=== PATIENT | female | born 2000 | race Caucasian/White ===

== ENCOUNTER 2020-06-03 10:23 | Emergency (ER) | payer MEDICAID, OTHER ==
--- NOTE | 2020-06-03 11:00 | ER Document Report ---
ED Medical Screen (RME) - General Chief Complaint: Vaginal Bleeding Stated Complaint: VAG BLEED 6 WEEKS PREG Time Seen by Provider: 06/03/20 10:54 Primary Care Provider: SYBIL VALDIVIA MD [Primary Care Provider] - Follow up as needed Mode of Arrival: Ambulatory Information source: Patient Notes: HPI; 19-year-old female who states she is approximately 6 weeks presents to the emergency room complaining of vaginal bleeding for the past 3 days. States initially she was just spotting and only notes of blood when she wiped increased bleeding this morning. No previous OB care. Did have a confirmed at her doctor's office on Sunday. She is a 1 denies any pain, no nausea, no vomiting. PE: Alert and oriented x3. Lungs: Clear to auscultation without rales, rhonchi, wheezes. Heart: Regular rate rhythm without murmurs, rubs, gallops. I have greeted and performed a rapid initial assessment of this patient. A comprehensive ED assessment and evaluation of the patient, analysis of test results and completion of the medical decision making process will be conducted by additional ED providers. I have specifically instructed the patient or family members with the patient to immediately return to any nursing staff should anything change in the patient's condition or with their chief complaint. TRAVEL OUTSIDE OF THE [place] IN LAST 30 DAYS: No - Related Data Allergies/Adverse Reactions: No Known Allergies Allergy (Verified 06/03/20 10:51) Doctor's Discharge - Discharge Referrals: SYBIL VALDIVIA MD [Primary Care Provider] - Follow up as needed
[2020-06-03 11:37] LABS: ABSOLUTE EOSINOPHILS # (AUTO) 0.1 10^3/uL (0.0-0.6); ABSOLUTE LYMPHOCYTES (AUTO) 2.2 10^3/uL (0.5-4.7); ABSOLUTE MONOCYTES (AUTO) 0.6 10^3/uL (0.1-1.4); ABSOLUTE NEUT (AUTO) 6.6 10^3/uL (1.7-8.2); BASOPHILS % (AUTO) 0.5 % (0-2); EOSINOPHILS % (AUTO) 1.4 % (0-6); HEMATOCRIT 38.8 % (36.0-47.0); HEMOGLOBIN 13.1 g/dL (12.0-15.5); LYMPHOCYTES % (AUTO) 23.1 % (13-45); MEAN CORPUSCULAR HEMOGLOBIN 27.4 pg (27.0-33.4); MEAN CORPUSCULAR HGB CONC 33.7 g/dL (32.0-36.0); MEAN CORPUSCULAR VOLUME 81 fl (80-97); MONOCYTES % (AUTO) 6.7 % (3-13); PLATELET COUNT 324 10^3/uL (150-450); RED BLOOD COUNT 4.77 10^6/uL (3.72-5.28); RED CELL DISTRIBUTION WIDTH 13.4 % (11.5-14.0); SEGMENTED NEUTROPHILS % (AUTO) 68.3 % (42-78); TOTAL CELLS COUNTED % (AUTO) 100 %; WHITE BLOOD COUNT 9.6 10^3/uL (4.0-10.5)
[2020-06-03 11:50] LABS: APPEARANCE,URINE SLIGHTLY-CLOUDY; BILIRUBIN,URINE NEGATIVE (NEGATIVE); COLOR,URINE YELLOW; GLUCOSE, URINE NEGATIVE (NEGATIVE); KETONES,URINE NEGATIVE (NEGATIVE); LEUKOCYTE ESTERASE,URINE NEGATIVE (NEGATIVE); NITRITE,URINE NEGATIVE (NEGATIVE); PROTEIN,URINE 30 mg/dL (NEGATIVE); URINE SPECIFIC GRAVITY 1.023; UROBILINOGEN,URINE NEGATIVE mg/dL (<2.0)
[2020-06-03 11:54] LABS: ALBUMIN 3.8 g/dL (3.5-5.0); ALKALINE PHOSPHATASE 85 U/L (38-126); ANION GAP 7 (5-19); ASPARTATE AMINO TRANSFERASE 24 U/L (14-36); BILIRUBIN,DIRECT 0.1 mg/dL (0.0-0.4); BILIRUBIN,TOTAL 0.4 mg/dL (0.2-1.3); BLOOD UREA NITROGEN 13 mg/dL (7-20); CALCIUM 9.4 mg/dL (8.4-10.2); CARBON DIOXIDE 27 mmol/L (22-30); CHLORIDE 104 mmol/L (98-107); GLUCOSE 101 mg/dL (75-110); POTASSIUM 4.2 mmol/L (3.6-5.0); TOTAL PROTEIN 7.1 g/dL (6.3-8.2)
--- NOTE | 2020-06-03 12:52 | RADIOLOGY REPORT (SQ) ---
EXAM DESCRIPTION: U/S OB TRANSVAGINAL W/O DOP IMAGES COMPLETED DATE/TIME: 06/03/2020 11:28 am TECHNIQUE: Transvaginal Static and realtime grayscale images acquired of the pelvis. Additional dory cted spectral and color Doppler images recorded. All images stored on PACs. bHCG: Not available CLINICAL DATES: LMP 04/29/2020 for clinical gestational age 5 weeks 0 days LIMITATIONS: None. FINDINGS: UTERUS: No visualized intrauterine . RIGHT ADNEXA: Not visualized. No adnexal free fluid. No adnexal masses. LEFT ADNEXA: Not visualized. No adnexal free fluid. No adnexal masses. FREE FLUID: None. OTHER: No other significant finding. IMPRESSION: NO VISUALIZED INTRA- OR EXTRAUTERINE . ECTOPIC CANNOT BE EXCLUDED. FOLLOW-UP ULTRASOUND AND SERIAL BHCG LEVELS STRONGLY RECOMMENDED TO ACCURATELY ASSESS STATU S. TECHNICAL DOCUMENTATION: JOB ID: [id number] 2010 true[x] Media- All Rights Reserved REASON FOR STUDY: vaginal bleeding vaginal bleeding. COMPARISON: None. Reading location - IP/workstation name: [email or web address]
--- NOTE | 2020-06-03 13:51 | ER Document Report ---
ED General - General Chief Complaint: Vaginal Bleeding Stated Complaint: VAG BLEED 6 WEEKS PREG Time Seen by Provider: 06/03/20 10:54 Primary Care Provider: SYBIL VALDIVIA MD [ACTIVE STAFF] - Follow up as needed Mode of Arrival: Ambulatory TRAVEL OUTSIDE OF THE [place] IN LAST 30 DAYS: No - HPI Notes: Chief complaint: Vaginal bleeding History of present illness: 19-year-old female 1 para 0 with last menses May 24 presents now with vaginal spotting. No abdominal pain. No fever, chills, nausea, vomiting or dysuria. Patient had a positive test at home last week and this was confirmed by her primary care physician's office earlier this week. Unremarkable prior medical history. - Related Data Allergies/Adverse Reactions: No Known Allergies Allergy (Verified 06/03/20 10:51) Past Medical History - General Information source: Patient - Social History Smoking Status: Never Smoker Frequency of alcohol use: None Drug Abuse: None Lives with: Family Family History: Reviewed & Not Pertinent - Medical History Medical History: Negative Review of Systems - Review of Systems Notes: Constitutional: Negative for fever. HENT: Negative for sore throat. Eyes: Negative for visual changes. Cardiovascular: Negative for chest pain. Respiratory: Negative for shortness of breath. Gastrointestinal: Negative for abdominal pain, vomiting or diarrhea. Genitourinary: As per HPI. Musculoskeletal: Negative for back pain. Skin: Negative for rash. Neurological: Negative for headaches, weakness or numbness. 10 point ROS negative except as marked above and in HPI. Physical Exam - Vital signs Vitals: Temp Pulse Resp BP Pulse Ox 98.9 F 98 16 130/73 H 98 06/03/20 10:41 06/03/20 10:41 06/03/20 10:41 06/03/20 10:41 06/03/20 10:41 - Notes Notes: GENERAL: Mildly obese female of approximately stated age appearing in no acute distress. SKIN: Good turgor no rashes. HEAD: Normocephalic atraumatic. EYES: PERRLA. EOMI. Conjunctivae and sclerae clear. EARS: CANALS AND TMS CLEAR. NOSE: CLEAR. MOUTH: Moist mucosa. Good dentition. No stridor or edema. No drooling. NECK: Supple. No masses or thyromegaly. No adenopathy. Carotids 2+ without bruits. No JVD. BACK: Symmetrical without tenderness. CHEST: Respirations unlabored. Breath sounds clear and symmetrical. HEART: Regular rhythm. No murmur gallop or rub. ABDOMEN: Mildly obese. Soft nontender without masses, organomegaly or rebound. Bowel sounds normally active. No bruits. GENITALIA: Deferred. EXTREMITIES: No edema. No calf tenderness. Cap refill less than 1.5 seconds. Dorsalis pedis and posterior tibial pulses 3+ and symmetrical. NEUROLOGICAL: GCS 15. Alert and oriented x3. Normal gait. Fluent speech. Cranial nerves II through XII intact. Sensorimotor and cerebellar normal. Normal tone. PSYCHIATRIC: Appropriate affect. Course - Re-evaluation Re-evalutation: 06/03/20 13:49 Quantitative beta-hCG is 7. Ultrasound shows no IUP. Patient is Rh+. Findings are discussed with patient and her father who accompanies her. She is advised that this could be a spontaneous miscarriage versus very early IUP versus early ectopic . We have given her appropriate instructions. She may take Tylenol at home. She understands to return here for red flag symp toms and will otherwise come back in in 3 days for repeat of a quantitative beta hCG. Findings, clinical impression and plan of treatment have been discussed with patient/family. Understanding of current findings and recommendations has been acknowledged by them and there is agreement regarding disposition and follow-up. - Vital Signs Vital signs: Temp Pulse Resp BP Pulse Ox 98.9 F 98 16 130/73 H 98 06/03/20 10:41 06/03/20 10:41 06/03/20 10:41 06/03/20 10:41 06/03/20 10:41 - Laboratory Results Result Diagrams: 06/03/20 11:25 06/03/20 11:25 Laboratory Results Interpreted: 06/03/20 06/03/20 11:05 11:25 Beta HCG, Quant 7.00 H Urine Protein 30 H Urine Blood LARGE H Critical Laboratory Results Reviewed: Yes Attending or Supervising Physician who Reviewed Labs: TYE GARCES - Radiology Results Radiology Results Interpreted: 06/03/20 13:48 Obstetrics Ultrasound 06/03/20 10:58 IMPRESSION: NO VISUALIZED INTRA- OR EXTRAUTERINE . ECTOPIC CANNOT BE EXCLUDED. FOLLOW-UP ULTRASOUND AND SERIAL BHCG LEVELS STRONGLY RECOMMENDED TO ACCURATELY ASSESS STATUS. Critical Radiology Results Reviewed: Yes Attending or Supervising Physician who Reviewed Radiology: TYE GARCES Discharge - Discharge Clinical Impression: Vaginal bleeding first trimester Condition: Stable Disposition: HOME, SELF-CARE Additional Instructions: Threatened Miscarriage You have been evaluated for a possible miscarriage. At this time, there is no indication that a miscarriage will occur. Most women with your symptoms will go on to have a perfectly normal baby. However, careful observation will be necessary. A miscarriage occurs when the fetus is abnormal. There is no medicine or treatment for it. You should rest in bed until the symptoms have resolved. Do not douche or have sex for at least a week, or until OK'd by the doctor. Call the doctor or return for re-examination if there is an increase in bleeding or cramping, or passage of tissue. Return here as needed for new or worsening symptoms: You may take Tylenol as needed for pain. Pain that is worsening or unimproved Uncontrolled vomiting High fever or shaking chills Overall worsening You should return here in 3 days to have repeat blood work as we have discussed. Referrals: SYBIL VALDIVIA MD [ACTIVE STAFF] - Follow up as needed
[2020-06-03 14:21] VITALS: BP 130/66
== END 2020-06-03 14:21 | disposition home or self-care (01) ==
LOC: ER 10:23
DX: O20.9 Hemorrhage in early pregnancy, unspecified (principal); Z3A.01 Less than 8 weeks gestation of pregnancy
CPT/HCPCS: 36415; 76817; 80053; 81001; 84702; 85025; 86900; 86901; 99284

== ENCOUNTER 2020-06-05 13:12 | Emergency (ER) | payer OTHER ==
--- NOTE | 2020-06-05 14:09 | ER Document Report ---
HPI - HPI Time Seen by Provider: 06/05/20 13:39 Pain Level: Denies Notes: CHIEF COMPLAINT: Recheck of beta-hCG HPI: 19-year-old female presenting for recheck of beta-hCG on the recommendation of Dr. Morejon emergency department attending who saw the patient 3 days ago in the emergency department for vaginal bleeding related to . She reports vaginal bleeding and cramping have stopped. She follows with women's [facility] but has not gone to see them yet since her initial episode of bleeding. She denies any other concerns at this time ROS: See HPI - all other systems were reviewed and are otherwise negative Constitutional: no fever GI: no vomiting, no diarrhea, no abdominal pain : no dysuria MEDICATIONS: I agree with the patient medications as charted by the RN. ALLERGIES: I agree with the allergies as charted by the RN. PAST MEDICAL HISTORY/PAST SURGICAL HISTORY: Reviewed and agree as charted by RN. SOCIAL HISTORY: Reviewed and agree as charted by RN. FAMILY HISTORY: No significant familial comorbid conditions directly related to patient complaint EXAM: Reviewed vital signs as charted by RN. CONSTITUTIONAL: Alert and oriented and responds appropriately to questions. Well-appearing; well-nourished HEAD: Normocephalic; atraumatic EYES: Conjunctivae clear, sclerae non-icteric ENT: normal nose; no rhinorrhea; moist mucous membranes unfortunately I think that we will not find NECK: Supple without meningismus CARD: Capillary refill less than 3 seconds RESP: Normal chest excursion without splinting or tachypnea ABD/GI: obese, Normal bowel sounds; non-distended; soft, non-tender, no rebound, no guarding; no palpable organomegaly or masses. BACK: The back appears normal EXT: Normal ROM in all joints; no cyanosis, no effusions, no edema SKIN: Normal color for age and race; warm; dry; good turgor NEURO: Moves all extremities equally; Motor and sensory function intact PSYCH: The patient's mood and manner are appropriate. Grooming and personal hygiene are appropriate. MDM: 19-year-old female presenting for repeat beta-hCG. She has an [facility] for follow-up ports no further bleeding or discomfort. Her beta hCG 3 days ago was 7. Her blood type is B+. - REPRODUCTIVE LMP: 04/25/2020 Reproductive: REPORTS: : Past Medical History - Social History Smoking Status: Current Some Day Smoker Chew tobacco use (# tins/day): No Frequency of alcohol use: None Drug Abuse: None Family History: Reviewed & Not Pertinent Patient has homicidal ideation: No Vertical Provider Document - INFECTION CONTROL TRAVEL OUTSIDE OF THE [place] IN LAST 30 DAYS: No Course - Re-evaluation Re-evalutation: 06/05/20 15:09 Patient's beta-hCG is negative today. She will follow-up with [facility] - Vital Signs Vital signs: Temp Pulse Resp BP Pulse Ox 98.7 F 108 H 16 131/81 H 97 06/05/20 13:24 06/05/20 13:24 06/05/20 13:24 06/05/20 13:24 06/05/20 13:24 - Laboratory Results Critical Laboratory Results Reviewed: No Critical Results - Radiology Results Critical Radiology Results Reviewed: No Critical Results Discharge - Discharge Clinical Impression: Abnormal laboratory test Condition: Stable Disposition: HOME, SELF-CARE Additional Instructions: Your beta hCG today was negative. You need to follow-up with [facility] for further evaluation and treatment call for appointment. It is certainly possible that you may have had a miscarriage. Return to the emergency department if you have further bleeding or concerns Referrals: JUSTINE GOMES PA-C [Primary Care Provider] - Follow up as needed ELLIE BRAN MD [ACTIVE STAFF] - Follow up as needed
[2020-06-05 15:57] VITALS: BP 143/77
== END 2020-06-05 16:00 | disposition home or self-care (01) ==
LOC: ER 13:12
DX: Z32.02 Encounter for pregnancy test, result negative (principal); F17.200 Nicotine dependence, unspecified, uncomplicated
CPT/HCPCS: 36415; 84702; 99283